=== PATIENT | female | born 1945 | race Caucasian/White ===

== ENCOUNTER 2019-08-13 12:47 | Emergency (ER) | payer MEDICARE ==
[2019-08-13] MEDS ORDERED: 0.9 % SODIUM CHLORIDE 1,000 ML BAG IV ONE ×2 (13:16→14:24)
[2019-08-13] MEDS ORDERED: ACETAMINOPHEN 1,000 MG/100 ML BTL IVPB ONE (13:17)
--- NOTE | 2019-08-13 13:18 | Emergency Department Record ---
History of Present Illness - General Chief complaint: Weakness Stated complaint: NAUSEA,WEAKNESS,DIARRHEA Time Seen by Provider: 08/13/19 12:57 Source: Patient, Family Mode of Arrival: Wheelchair Limitations: No limitations - History of Present Illness Initial comments: The patient is here due to not feeling well for about a week. She first developed a fever and cough and weakness. That improved but then for the last 3 days she has had nausea, vomiting and loose watery stools. The patient denies any GALINDO, neck pain, or CP but she is having upper abdominal aching. The patient also has had some dark stools at times today but did take Pepto-bismal yesterda. She also did get a Flu shot this year. MD Complaint: Generalized weakness, Lack of energy Onset/Timin -: Week(s) Location: Generalized Associated Symptoms: Fever/chills, Nausea/vomiting - Kristan Coma Scale Eye Response: (4) Open spontaneously Motor Response: (6) Obeys commands Verbal Response: (5) Oriented Kristan Total: 15 - Related Data Home Medications Medication Instructions Recorded Confirmed Last Taken Acetaminophen [Arthritis Pain 1,300 mg PO ASDIR 08/13/19 08/13/19 08/13/19 Reliever] Albuterol Sulfate [Proair Hfa] 1 - 2 puff IH .EVERY 4-6 HOURS PRN 08/13/19 08/13/19 Unknown Atorvastatin Calcium [Lipitor] 10 mg PO QHS 08/13/19 08/13/19 Unknown Buspirone HCl [Buspar] 15 mg PO BID 08/13/19 08/13/19 Unknown Calcium Carbonate/Vitamin D3 1 each PO DAILY 08/13/19 08/13/19 Unknown [Calcium 500 mg Chewable Tablet] Carvedilol [Coreg] 3.125 mg PO NOW 08/13/19 08/13/19 08/13/19 Cholecalciferol (Vitamin D3) 5,000 unit PO DAILY 08/13/19 08/13/19 Unknown [Vitamin D3] Ergocalciferol (Vitamin D2) 50,000 unit PO WEEKLY 08/13/19 08/13/19 Unknown [Vitamin D2] Fluticasone Propion/Salmeterol 12 gm IH BID 08/13/19 08/13/19 Unknown [Advair Hfa 115-21 Mcg Inhaler] Hydrocodone/Acetaminophen [Proctor 1 each PO TID 08/13/19 08/13/19 Unknown 5-325 Tablet] Montelukast Sodium 10 mg PO DAILY 08/13/19 08/13/19 Unknown Morphine Sulfate [Ms Contin] 30 mg PO Q12H 08/13/19 08/13/19 Unknown Omeprazole 40 mg PO DAILY 08/13/19 08/13/19 Unknown Prednisone [Prednisone 1Mg] 1 mg PO DAILY 08/13/19 08/13/19 Unknown Teriparatide [Forteo] 2.4 ml SQ DAILY 08/13/19 08/13/19 08/13/19 Theophylline Anhydrous 600 mg PO DAILY 08/13/19 08/13/19 08/13/19 [Theophylline] Triamcinolone Acetonide [Nasacort] 1 spray NS DAILY PRN 08/13/19 08/13/19 Unknown Previous Rx's Medication Instructions Recorded Doxycycline Monohydrate [Mondoxyne 100 mg PO BID 7 Days #14 capsule 08/13/19 Nl] Ondansetron [Zofran Odt] 4 mg SL .Q4-6H PRN #12 tab.rapdis 08/13/19 Allergies Allergy/AdvReac Type Severity Reaction Status Date / Time aspirin Allergy ANAPHYLAXIS Verified 08/13/19 13:07 cephalexin monohydrate Allergy SWELLING Verified 08/13/19 13:07 [From Keflex] OF THE LIPS Penicillins Allergy SWELLING Verified 08/13/19 13:07 OF THE LIPS Travel/Exposure Screening - Travel/Exposure Within Last 30 Days Have you traveled within the last 30 days?: No - Travel/Exposure Within Last Year Have you traveled outside the [place] in the last year?: No - Additonal Travel/Exposure Details Have you been exposed to anyone with a communicable illness?: No Exposure Details:: at large Friday [employer] Review of Systems Constitutional: Reports: Chills, Fever, Malaise Eyes: Denies: Eye discharge ENT: Denies: Congestion Respiratory: Reports: Cough. Denies: Dyspnea Cardiovascular: Denies: Chest pain Endocrine: Reports: Fatigue Gastrointestinal: Reports: Diarrhea, Nausea, Vomiting. Denies: Hematemesis Genitourinary: Denies: Dysuria Musculoskeletal: Denies: Arthralgia Skin: Reports: Bruising Past Medical History - SOCIAL HISTORY Smoking Status: Never smoker Alcohol Use: None Drug Use: None - RESPIRATORY Hx Respiratory Disorders: Yes Hx Asthma: Yes - CARDIOVASCULAR Hx Cardio Disorders: Yes Hx Hypertension: Yes Hx Irregular Heartbeat: Yes - NEURO Hx Neuro Disorders: No - GI Hx GI Disorders: Yes Hx Reflux: Yes - Hx Genitourinary Disorders: No - ENDOCRINE Hx Endocrine Disorders: No - MUSCULOSKELETAL Hx Musculoskeletal Disorders: Yes - PSYCH Hx Psych Problems: No - HEMATOLOGY/ONCOLOGY Hx Hematology/Oncology Disorders: No Family Medical History Any Significant Family History?: No Physical Exam - General General Appearance: Alert, Oriented x3, Cooperative, No acute distress - Head Head exam: Atraumatic, Normocephalic, Normal inspection - Eye Eye exam: Normal appearance, PERRL, EOMI. negative: Conjunctival injection - ENT Throat exam: Normal inspection. negative: Tonsillar erythema, Tonsillar exudate - Neck Neck exam: Normal inspection, Full ROM. negative: Tenderness - Respiratory Respiratory exam: Normal lung sounds bilaterally. negative: Respiratory distres s - Cardiovascular Cardiovascular Exam: Regular rate, Normal rhythm, Normal heart sounds - GI/Abdominal GI/Abdominal exam: Soft, Normal bowel sounds, Tenderness (There is mild diffuse upper abdominal tenderness.). negative: Guarding, Pulsatile mass, Rebound, Rigid - Extremities Extremities exam: Normal inspection, Full ROM, Normal capillary refill. negative: Tenderness - Neurological Neurological exam: Alert, Oriented X3. negative: Altered, Motor sensory deficit - Skin Skin exam: negative: Rash Course Vital Signs 08/13/19 12:54 Temperature 99.8 F H Pulse Rate 89 Respiratory 20 Rate Blood Pressure 148/80 Pulse Ox 96 - Reevaluation(s) Reevaluation #1: The patient is doing better but is having mild upper abdominal tenderness that is persisting. I did offer to do a stool quaic on the patient due to the dark stools but the patient is refusing due to the fact that it is most likely due to taking Peptobismal. 08/13/19 14:25 Reevaluation #2: The patient is doing better at this time. She denies any CP, SOB, AP or any new back pain. She did ambulate to the bathroom without difficulty and her RA biox was 93% after. She is feeling much less weak and would like to go home. 08/13/19 15:09 Reevaluation #3: The patient is doing a lot better at this time. She denies any pain or nausea or SOB and would like to go home. On exam her RA boix is 94% and she does have a nebulizer at home. We will give the patient Zofran for nausea and will start her on Doxycycline. She has had no vomiting or diarrhea here and does feel much bet ter with the IVF. 08/13/19 15:33 Medical Decision Making - Data Complexity MDM Data: Labs Ordered and/or Reviewed, X-Ray Ordered and/or Reviewed, EKG Ordered and/or Reviewed - Lab Data Result diagrams: 08/13/19 13:00 08/13/19 13:00 - EKG Data -: EKG Interpreted by Me EKG: No Acute Changes (NSR at 80, LAFB, Neg ischemic changes.) - Radiology Data Radiology results: Report reviewed (CXR: Neg for any acute changes.) Disposition Disposition: Discharge Clinical Impression: Gastroenteritis Disposition: Home, Self-Care Condition: (2) Stable Instructions: Weakness (ED) Additional Instructions: Please continue the regular medicines and please take Tylenol for fever, Zofran for nausea and Doxycycline as directed. Please see your doctor early next week and return to the ER for any worsening symptoms. Prescriptions: Doxycycline Monohydrate [Mondoxyne Nl] 100 mg PO BID 7 Days #14 capsule Ondansetron [Zofran Odt] 4 mg SL .Q4-6H PRN #12 tab.rapdis PRN Reason: Nausea Forms: Patient Portal Access Time of Disposition: 15:36 Quality - Quality Measures Quality Measures: N/A - Blood Pressure Screening View Details: Yes Does Patient Have Any of the Following: No Blood Pressure Classification: Pre-Hypertensive BP Reading Systolic Measurement: 148 Diastolic Measurement: 80 Screening for High Blood Pressure: < Pre-Hypertensive BP, F/U Documented > [G8950] Pre-Hypertensive Follow-up Interventions: Referral to alternative/primary care provider.
[2019-08-13] MEDS: ONDANSETRON HCL IV 4 MG/2 ML VIAL IV ONE ×2 (13:28→13:31)
[2019-08-13 13:50] LABS: BLOOD UREA NITROGEN 26 mg/dL (8-23)
[2019-08-13 13:51] LABS: CREATININE 1.1 mg/dL (0.5-0.9); EST GLOMERULAR FILTRATION RATE 52 mL/min; LIPASE 16 U/L (13-60); TOTAL PROTEIN 8.3 g/dL (6.6-8.7)
[2019-08-13 13:53] LABS: GLUCOSE,RANDOM 139 mg/dL (74-109)
[2019-08-13 13:54] LABS: INFLUENZA A NEGATIVE (NEGATIVE); INFLUENZA B NEGATIVE (NEGATIVE)
[2019-08-13 13:56] LABS: ALBUMIN 4.3 g/dL (4.0-5.0); ALKALINE PHOSPHATASE 152 U/L (35-104); ALT/SGPT 15 U/L (<33); AST/SGOT 24 U/L (10.0-35.0); BILIRUBIN,DIRECT < 0.2 mg/dL (0-0.3); C-REACTIVE PROTEIN 1.02 mg/dL (<0.5)
[2019-08-13 14:06] LABS: HEMATOCRIT 48.5 % (35.0-47.0); HEMOGLOBIN 16.4 gm/dl (11.6-16.0); MEAN CELL VOLUME 92.2 fl (81-97); MEAN CORPUSCULAR HGB CONC 33.8 g/dl (32-36); PLATELET COUNT 289 K/uL (130-400); RED BLOOD COUNT 5.26 M/uL (3.80-5.40); RED CELL DISTRIBUTION WIDTH 12.7 % (11.5-14.5); WHITE BLOOD COUNT W/O DIFF 13.6 K/uL (4.2-12.2)
[2019-08-13 14:07] LABS: MEAN CORPUSCULAR HEMOGLOBIN 31.1 pg (27-33)
[2019-08-13 14:14] LABS: PLATELET ESTIMATE NORMAL (NORMAL)
[2019-08-13] MEDS ORDERED: MAGNESIUM HYDROXIDE/AL HYDROX 30 ML, LIDOCAINE VISC 2% 15ML 15 ML PO ONE ×2 (14:23)
--- NOTE | 2019-08-13 14:29 | RADIOLOGY REPORT ---
EXAMINATION: Two View Chest Radiographs EXAM DATE: 08/13/2019 2:06 PM TECHNIQUE: Frontal and lateral views INDICATION: cough. The technologist elicited the history: Fever, cough, flulike symptoms. Nonsmoker. COMPARISON: Chest radiographs, 07/08/2013. ENCOUNTER: Not applicable FINDINGS: The heart, mediastinum, and pulmonary vasculature are normal. Tortuosity of the aorta with calcificat ions. Mild bibasilar scarring. No lung consolidation or pleural effusions are present. Diffuse small thoracic vertebral body osteophytes. Decreased bone mineralization. Overall, compared to the previous study, no significant interval changes. Chest CT could be helpful in further evaluation. Incidental note: Lumbar spine kyphoplasty. IMPRESSION: No focal pulmonary infiltrates or pleural effusions. Mild bibasilar scarring. Atherosclerosis. Spondylosis. Dictated by: Carol Funez MD on 08/13/2019 2:25 PM. .
[2019-08-13] MEDS ORDERED: IPRATROPIUM/ALBUTEROL (0.5MG/3MG) NEB INH ONE (15:01)
== END 2019-08-13 15:57 | disposition home or self-care (01) ==
LOC: ER 12:47
DX: K52.9 Noninfective gastroenteritis and colitis, unspecified (principal); R53.1 Weakness; R11.2 Nausea with vomiting, unspecified; R05 Cough; R10.10 Upper abdominal pain, unspecified; R19.5 Other fecal abnormalities; I10 Essential (primary) hypertension
CPT/HCPCS: 71046; 80048; 80076; 83690; 84484; 85027; 86140; 87400; 93005; 93010; 94640; 96361; 96365; 96375; 99284; J2405; J7030